=== PATIENT | female | born 1990 | race Caucasian/White ===

== ENCOUNTER 2016-12-21 17:07 | Emergency (ER) | payer SELFPAY ==
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
[~2016-12-21 17:07] MED LIST: ACETAMINOPHEN650 M2 PO; AFRIN) (GENASAL15 ML NOSE; LEVAQUIN750 MG PO; MOTRIN600 MG PO; MUCINEX600 MG PO; OCEAN NASAL) (A44 ML NOSE; OXYGEN; TESSALON PERLE100 MG PO; VENTOLIN HFA8 GM INH
[2016-12-21 17:43] LABS: BILIRUBIN URINE NEGATIVE (NEGATIVE); BLOOD URINE 150 /UL (NEGATIVE); COLOR URINE YELLOW (YELLOW); GLUCOSE URINE NEGATIVE (NEGATIVE); KETONE URINE NEGATIVE (NEGATIVE); LEUKOCYTES URINE 500 /UL (NEGATIVE); NITRITE URINE NEGATIVE (NEGATIVE); PROTEIN URINE 100 mg/dL (NEGATIVE); TURBIDITY URINE 3+ (CLEAR); UROBILINOGEN URINE NORMAL (NORMAL)
[2016-12-21 17:48] LABS: BASOPHIL % 0.3 %; EOSINOPHIL # 0.3 K/uL (0.0-0.5); EOSINOPHIL % 2.5 %; HEMOGLOBIN 15.8 g/dL (11.0-15.0); IMMATURE GRANULOCYTE # 0.1 K/uL (0.0-0.3); IMMATURE GRANULOCYTE % 0.4 %; LYMPHOCYTE # 2.4 K/uL (0.8-4.0); LYMPHOCYTE % 18.4 %; MCHC 36.7 gm/dL (32.0-36.5); MCV 92.5 fl (83.0-98.0); MONOCYTE % 7.5 %; NEUTROPHIL # (ANC) 9.3 K/uL (1.8-7.8); NEUTROPHIL % 70.9 %; NRBC % 0 /100WBC (0-0.00); PLATELET COUNT 324 K/uL (150-450); RBC 4.65 M/uL (3.50-5.00); RDW-CV 11.9 % (11.9-14.6); WBC 13.1 K/uL (4.0-11.0)
[2016-12-21 17:50] LABS: BACTERIA URINE MODERATE (NEGATIVE); EPITHELIAL URINE PACKED FIELD #/HPF (NEGATIVE); MUCUS URINE 1+ (NEGATIVE); WBC URINE 20-50 #/HPF (NEGATIVE)
[2016-12-21 17:51] LABS: AMORPHOUS URINE 1+ (NEGATIVE)
[2016-12-21 17:59] LABS: BARBITURATE NEGATIVE (NEGATIVE); COCAINE NEGATIVE (NEGATIVE); OPIATES NEGATIVE (NEGATIVE)
[2016-12-21 18:00] LABS: AMPHETAMINE NEGATIVE (NEGATIVE)
[2016-12-21 18:05] LABS: ALBUMIN 3.4 gm/dL (3.5-5.0); ALK PHOS 77 IU/L (33-138); ALT 14 IU/L (12-78); ANION GAP 10.7 (10.0-19.0); AST 18 IU/L (10-40); BLOOD UREA NITROGEN 11 mg/dL (6-24); CALCIUM 8.4 mg/dL (8.5-10.5); CHLORIDE 112 mMol/L (96-110); CO2 23 mMol/L (22-32); CREATININE 0.8 mg/dL (0.5-1.1); POTASSIUM 3.7 mMol/L (3.7-5.1); SODIUM 142 mMol/L (135-145); TOTAL BILIRUBIN 0.3 mg/dL (0.0-1.5); TOTAL PROTEIN 7.1 g/dL (6.0-8.4)
== END 2016-12-21 19:09 | disposition disaster alternative care site (69) ==
LOC: GACC 17:07
PROVIDERS: Physician Assistant Medical
DX: S00.83XA Contusion of other part of head, initial encounter (principal); S40.011A Contusion of right shoulder, initial encounter; S80.211A Abrasion, right knee, initial encounter; S60.511A Abrasion of right hand, initial encounter; S60.512A Abrasion of left hand, initial encounter; M54.6 Pain in thoracic spine; J45.909 Unspecified asthma, uncomplicated; F32.9 Major depressive disorder, single episode, unspecified; F17.210 Nicotine dependence, cigarettes, uncomplicated; Z98.890 Other specified postprocedural states; Y04.0XXA Assault by unarmed brawl or fight, initial encounter; Y92.009 Unspecified place in unspecified non-institutional (private) residence as the place of occurrence of the external cause
CPT/HCPCS: G0480